=== PATIENT | male | born 1965 | race Two or more races ===

== ENCOUNTER 2016-09-26 22:41 | Emergency (ER) | payer SELFPAY ==
[~2016-09-26] VITALS: Ht 152.4 cm; Wt 77.1 kg
[2016-09-27] MEDS ORDERED: IV NS 0.9% 500 ML BAG IV ONE (01:00)
[2016-09-27] MEDS ORDERED: KETOROLAC TROMETHAMINE INJ 30 MG/ML VIAL IV ONE (01:00)
[2016-09-27 01:11] LABS: BASOPHILS # (AUTO) 0.1 /CMM (0.0-0.2); BASOPHILS % (AUTO) 1.1 % (0.0-2.0); DIFF TOTAL % 100 %; EOSINOPHILS # (AUTO) 0.4 /CMM (0.0-0.7); EOSINOPHILS % (AUTO) 5.3 % (0.0-6.0); HEMATOCRIT 43 % (39-51); HEMOGLOBIN 14.4 g/dL (13.5-17.5); LYMPHOCYTES # (AUTO) 2.7 /CMM (0.8-4.8); LYMPHOCYTES % (AUTO) 38.3 % (20.0-44.0); MEAN CORPUSCULAR HEMOGLOBIN 29 PG (26.0-33.0); MEAN CORPUSCULAR HGB CONC 34 g/dl (31.0-36.0); MEAN CORPUSCULAR VOLUME 87 fL (80-96); MONOCYTES # (AUTO) 0.7 /CMM (0.1-1.30); MONOCYTES % (AUTO) 10.1 % (2.0-12.0); NEUTROPHILS # (AUTO) 3.2 /CMM (1.8-8.9); NEUTROPHILS % (AUTO) 45.2 % (43.0-81.0); PLATELET COUNT (AUTO) 266 /CMM (150-450); RED BLOOD CELL COUNT(AUTO) 4.95 MIL/uL (4.5-6.0); WHITE BLOOD COUNT (AUTO) 7.2 K/uL (4.3-11.0)
[2016-09-27 01:17] LABS: CALCIUM, SERUM 8.4 mg/dL (8.5-10.1); CREATININE 1.1 mg/dL (0.6-1.3); POTASSIUM 3.6 mmol/L (3.5-5.1)
[2016-09-27] MEDS ORDERED: KETOROLAC TROMETHAMINE 15 MG/ML VIAL ONE (01:19)
[2016-09-27] MEDS ORDERED: IV SET PRIMARY 1 EA INFUS.SET MC ONE (01:19)
[2016-09-27] MEDS ORDERED: IV NS 0.9% 500 ML IV ONE (01:19)
[2016-09-27 01:24] LABS: ALBUMIN 3.7 g/dL (3.4-5.0); BILIRUBIN,DIRECT 0.1 mg/dL (0.0-0.2); BILIRUBIN,TOTAL 0.3 mg/dL (0.2-1.0); INDIRECT BILIRUBIN 0.2 mg/dL (0.0-1.1); TOTAL PROTEIN, SERUM 7.6 g/dL (6.4-8.2)
[2016-09-27 01:41] LABS: ADD UA MICROSCOPIC NO; KETONES,URINE NEGATIVE (NEGATIVE); LEUKOCYTE ESTERASE ,URINE NEGATIVE (NEGATIVE)
[2016-09-27 06:08] VITALS: BP 119/69
== END 2016-09-27 06:54 | disposition home or self-care (01) ==
LOC: ER 22:43
DX: N50.3 Cyst of epididymis (principal); M54.17 Radiculopathy, lumbosacral region; M25.551 Pain in right hip
CPT/HCPCS: 36415; 74176; 76870; 80048; 80076; 81001; 83690; 85025; 96374; 99285; A4606; J1885; J7040; Z7610; 81000-TC